=== PATIENT | female | born 1945 | race Caucasian/White ===

== ENCOUNTER → 2016-10-29 | Outpatient (CLI) | payer OTHER ==
[~2016-10-29] MED LIST: AMR2 PO; ASPI81TA28 PO; HYDC25 PO; LEVO112T18 PO; LISI5TAB3 PO; SIMV20TA2 PO
--- NOTE | 2016-10-29 12:58 | MAMMOGRAPHY REPORT ---
BILATERAL DIGITAL SCREENING MAMMOGRAM WITH CAD: 10/29/2016 CLINICAL HISTORY: Routine screening. Patient has no complaints. TECHNIQUE: Current study was also evaluated with a Computer Aided Detection (CAD) system. Bilatera l CC and MLO views were obtained. COMPARISON: Comparison is made to exams dated: 10/29/2015 mammogram, 10/26/2014 mammogram, 10/25/2013 mammogram, 09/02/2012 mammogram, 08/27/2011 mammogram, and 08/23/2010 mammogram - [facility]. BREAST COMPOSITION: There are scattered areas of fibroglandular density in both breasts. FINDINGS: No suspicious masses, calcifications, or areas of architectural distortion are noted in e ither breast. There has been no significant interval change compared to prior exams. Pacemaker proj ects over the left pectoralis muscle. Bilateral benign-appearing calcifications are not significant ly changed. IMPRESSION: ACR BI-RADS CATEGORY 2: BENIGN There is no mammographic evidence of malignancy. A 1 year screening mammogram is recommended. The p atient will receive written notification of the results. Approximately 10% of breast cancers are not detected with mammography. A negative mammographic repor t should not delay biopsy if a clinically suggestive mass is present. Chyna Jorge M.D. /:10/29/2016 12:41:11 [employer] Lieutenant: Ken NUNEZ)(M), [facility] letter sent: Normal 1/2 BI-RADS Code: ACR BI-RADS Category 2: Benign
== END | disposition home or self-care (01) ==
LOC: C.MAMM 11:42
PROVIDERS: ATTEND Obstetrics & Gynecology
DX: Z12.31 Encounter for screening mammogram for malignant neoplasm of breast (principal)

== ENCOUNTER 2017-10-01 14:31 | Emergency (ER) | payer OTHER ==
[~2017-10-01] VITALS: Ht 152.4 cm; Wt 70.5 kg
[2017-10-01 14:41] VITALS: TEMP 36.6; Ht 152.4 cm; Wt 70.5 kg
--- NOTE | 2017-10-01 16:50 | EMERGENCY ROOM VISIT NOTE ---
History Report prepared by Drake: Chano Morales Under the Supervision of: Dr. Luciano Mortensen M.D. First contact with patient: 16:31 Chief Complaint: CARDIAC ASSESSMENT Stated Complaint: DISCOMFORT&BURNING IN CHEST/PACEMAKER AREA Nursing Triage Summary: triage note: pt reports intermittent left chest burning sensation x 2 weeks. pt reports she has a pacemaker in left chest. pt reports pus like drainage from left nipple x 10 days per pt "it is a just a small amount." History of Present Illness The patient is a 71 year old white female with a past medical history of DM, HTN , and heart block who presents to the ED with a cc of intermittent left sided chest pain beginning 10 days ago. She rates her discomfort as a 3/10 in severity. She describes the pain as a burning sensation.The patient states she had a pacemaker placed 4 [address] Abad due to a history of a heart block. She reports that for the last 10 days she has been experiencing pain around the pacemaker site. The patient states that some days the pain will not be as severe, but other days the area will be burning. She reports she has also noticed yellow like discharge from her left nipple which started around the same time as the chest pain. The patient states she only notices the discharged when she takes off her bra and sees that her bra is slightly wet on the left side. She reports she has taken Ibuprofen for her symptoms without relief. Positive Radiation to the shoulder, alcohol use. Negative excess use of left arm, moving pacemaker, history of blood clots, changes in medications, fevers, chills, falling, injury, shortness of breath, cough, tobacco use, abdominal pain, urinary symptoms, abnormal bowel movements, lower extremity edema, breast pain, a history of breast cancer. Source of History: patient Onset: 10 days ago Position: chest (left) Symptom Intensity: 3/10 Quality: burning Timing: intermittent Modifying Factors (Relieving): ibuprofen Associated Symptoms: No fevers, No chills, No cough, No SOB, No urinary symptoms Note: Positive: radiation to the left shoulder Negative: falling, injury, abnormal bowel movements, lower extremity edema, breast pain. Review of Systems See HPI for pertinent positives and negatives. A total of ten systems were reviewed and were otherwise negative. Past Medical & Surgical Medical Problems: (1) Diab Keya Wo Compl, Type Ii Or Unspec Type, Not Uncntrld (2) Hearing Loss Nos (3) Hypertension Nos (4) Meniere's Disease Nos Family History Patient reports no known family medical history. Social History Smoking Status: Never Smoker Drug Use: none Marital Status: Housing Status: lives with family Occupation Status: employed Current/Historical Medications Scheduled Aspirin (Aspirin Ec), 81 MG PO DAILY Atorvastatin (Lipitor), 1 TAB PO QPM Bromfenac Sodium (Ophth) (Prolensa), 1 DROP OPB DAILY Glimepiride (Glimepiride), 1 TAB PO DAILY Hydrochlorothiazide (Hctz), 25 MG PO DAILY Levothyroxine Sodium (Synthroid), 100 MCG PO DAILY Lisinopril (Prinivil), 5 MG PO DAILY Allergies Coded Allergies: Monosodium Glutamate (Verified Allergy, Unknown, 07/13/09) Physical Exam Vital Signs Date Time Temp Pulse Resp B/P (MAP) Pulse Ox O2 Delivery O2 Flow Rate FiO2 10/01/17 19:11 71 16 126/60 98 10/01/17 17:41 70 10/01/17 17:36 97 Room Air 10/01/17 17:36 63 18 139/73 97 Room Air 10/01/17 14:41 36.6 96 18 133/89 97 Room Air Physical Exam GENERAL: Awake, alert, well-appearing, NAD HENT: Normocephalic, atraumatic. EYES: Normal conjunctiva. Sclera non-icteric. PERRL. No anisocoria. NECK: Supple. No nuchal rigidity. FROM. RESPIRATORY: CTAB, no rhonchi, wheezing, crackles CARDIAC: RRR, no MRG ABDOMEN: Soft, NTND, BS+ MSK: Device in left chest. Mild reproducible pain over site. Horizontal incisional scar. No redness, calor, or fluctuance. No pain over the breast. Scant serous discharge from left nipple. No LE edema NEURO: GCS 15, CN 2-12 intact, moves all 4s on command SKIN: No rash or jaundice noted. Medical Decision & Procedures ER Provider Diagnostic Interpretation: X-ray: Per my interpretation, radiologist review. CHEST ONE VIEW PORTABLE CLINICAL HISTORY: Chest pain. COMPARISON STUDY: Chest radiograph September 09, 2013. FINDINGS: A dual-lead left subclavian pacemaker is unchanged in position. There is mild cardiomegaly without evidence for pulmonary edema. There is no consolidation to suggest pneumonia. Lung volumes are at the lower limits of normal. The appearance of the chest is unchanged. IMPRESSION: No acute cardiopulmonary findings. Electronically signed by: Isacc Perez M.D. 10/01/2017 5:12 PM Dictated Date/Time: 10/01/2017 5:11 PM Laboratory Results 10/01/17 17:30 Red Blood Count 4.53, Mean Corpuscular Volume 86.1, Mean Corpuscular Hemoglobin 29.8, Mean Corpuscular Hemoglobin Concent 34.6, Mean Platelet Volume 9.6, Neutrophils (%) (Auto) 73.6, Lymphocytes (%) (Auto) 16.2, Monocytes (%) (Auto) 7.7, Eosinophils (%) (Auto) 1.9, Basophils (%) (Auto) 0.3, Neutrophils # (Auto) 5.14, Lymphocytes # (Auto) 1.13, Monocytes # (Auto) 0.54, Eosinophils # (Auto) 0.13, Basophils # (Auto) 0.02 10/01/17 17:30 Test 10/01/17 17:30 White Blood Count 6.98 K/uL (4.8-10.8) Red Blood Count 4.53 M/uL (4.2-5.4) Hemoglobin 13.5 g/dL (12.0-16.0) Hematocrit 39.0 % (37-47) Mean Corpuscular Volume 86.1 fL (80-100) Mean Corpuscular Hemoglobin 29.8 pg (25-34) Mean Corpuscular Hemoglobin Concent 34.6 g/dl (32-36) Platelet Count 219 K/uL (130-400) Mean Platelet Volume 9.6 fL (7.4-10.4) Neutrophils (%) (Auto) 73.6 % Lymphocytes (%) (Auto) 16.2 % Monocytes (%) (Auto) 7.7 % Eosinophils (%) (Auto) 1.9 % Basophils (%) (Auto) 0.3 % Neutrophils # (Auto) 5.14 K/uL (1.4-6.5) Lymphocytes # (Auto) 1.13 K/uL (1.2-3.4) Monocytes # (Auto) 0.54 K/uL (0.11-0.59) Eosinophils # (Auto) 0.13 K/uL (0-0.5) Basophils # (Auto) 0.02 K/uL (0-0.2) RDW Standard Deviation 41.0 fL (36.4-46.3) RDW Coefficient of Variation 12.9 % (11.5-14.5) Immature Granulocyte % (Auto) 0.3 % Immature Granulocyte # (Auto) 0.02 K/uL (0.00-0.02) Prothrombin Time 10.7 SECONDS (9.0-12.0) Prothromb Time International Ratio 1.0 (0.9-1.1) Activated Partial Thromboplast Time 26.6 SECONDS (21.0-31.0) Partial Thromboplastin Ratio 1.0 Anion Gap 7.0 mmol/L (3-11) Est Creatinine Clear Calc Drug Dose 67.4 ml/min Estimated GFR () 102.9 Estimated GFR (Non- 88.8 BUN/Creatinine Ratio 15.5 (10-20) Calcium Level 8.7 mg/dl (8.5-10.1) Total Bilirubin 0.7 mg/dl (0.2-1) Direct Bilirubin 0.2 mg/dl (0-0.2) Aspartate Amino Transf (AST/SGOT) 20 U/L (15-37) Alanine Aminotransferase (ALT/SGPT) 38 U/L (12-78) Alkaline Phosphatase 71 U/L (45-117) Troponin I < 0.015 ng/ml (0-0.045) Pro-B-Type Natriuretic Peptide 136 pg/ml (0-900) Total Protein 6.9 gm/dl (6.4-8.2) Albumin 3.9 gm/dl (3.4-5.0) Lipase 389 U/L (73-393) Laboratory results reviewed by me ECG Per My Interpretation Indication: chest pain Rate (beats per minute): 79 Rhythm: other (AV dual paced) Findings: LBBB, Q waves, other (prolonged NM, wide QRS) ED Course 163: The patient was evaluated in room B09. A complete history and physical exam was performed. 1824: I discussed the patient's case with Dr. Guerrero, [facility]. He reports the patient is able to go home and follow up with his clinic. 1857: I reevaluated the patient. Discussed results and discharge instructions: She verbalized understanding and agreement. The patient is ready for discharge. Medical Decision Nursing notes reviewed. Ancillary studies and prior records reviewed. The patient is a 71 year old white female with a past medical history of DM, HTN , and heart block who presents to the ED with a cc of intermittent left sided chest pain beginning 10 days ago. The patient's presentation and history were concerning for etiologies such as cardiac ischemia, aortic dissection, pulmonary embolism, pneumonia, pneumothorax , musculoskeletal, infections, pericarditis, myocarditis, esophageal rupture, gastrointestinal, pacemaker fracture as well as others were entertained. Patient was seen and evaluated the bedside. Patient was complaining some left- sided chest discomfort that been ongoing 10 days. Patient states it feels like it is pain over her pacemaker. Patient denies any increase in left upper extremity use, trauma, or having struck the device. Patient denies any shortness of breath. Patient denies any exertional chest pain and no history of DVT or PE. Patient is also noted an associated breast discharge. On exam the patient does have some mild reproducible tenderness where the pacemaker is located but without any erythema, calor, fluctuance, or discharge. Patient does have some scant serous discharge from the left breast that was able to be expressed but this is a very small amount much less than 1 cc. Patient does not have any breast tenderness, fluctuance, or erythema. Patient did blood work completed, EKG, troponin, and chest x-ray. The patient declined any pain medication at this time. The patient did have her pacemaker interrogated. Patient's pacemaker was interrogated. The patient does have approximate 4 years of battery life. The patient's chest x-ray is unremarkable. Blood work is also fairly unremarkable. Troponin is negative. I did discuss the case with the on-call utility worker we did discuss things like possibility of infection or migration. Given the normal white counts and lack of other signs and symptoms less likely infection. The leads appear to be in the appropriate place per the chest x-ray. Recommended follow-up in clinic. Patient was told to take Tylenol and to apply things like warm compresses and/ or ice to the area to help with any discomfort. Given the reproducible nature of her chest pain over the pacemaker I do not believe that this is ACS. Less likely PE given patient's history and physical exam per patient was told to follow-up with her PCP for her breast discharge. Patient was given strict follow-up, discharge, and return precautions. All questions were answered. Patient was deemed suitable for outpatient follow-up at this time. Patient agreed with the plan of care and was safely discharged home. Medication Reconcilliation Current Medication List: was personally reviewed by me Blood Pressure Screening Patient's blood pressure: Elevated blood pressure Blood pressure disposition: Referred to PCP Consults Time Called: 1824 Consulting Physician: [facility] Returned Call: 1824 I discussed the patient's case with [facility]. He reports the patient is able to go home and follow up with his clinic. Impression Primary Impression: Chest pain Additional Impression: Pain in pacemaker pocket Scribe Attestation The scribe's documentation has been prepared under my direction and personally reviewed by me in its entirety. I confirm that the note above accurately reflects all work, treatment, procedures, and medical decision making performed by me. Departure Information Dispostion Home / Self-Care Referrals Jorge Maldonado, Yordan (PCP) Erasmo Abad M.D. Patient Instructions Chest Pain - [facility], [facility] Additional Instructions Please return to the emergency department if you have worsening or recurrent symptoms not amenable to at-home treatment. Please call for a follow-up appointment with her primary care physician. Please take your medications as prescribed. If you have other concerns and/or complaints please feel free to also call your primary care physician's office or return the ED for further evaluation, management, and treatment. You may take tylenol 650 mg every 6 hours as needed for pain/fever unless told by your physician to not take it or have liver problems. You may apply moist heat or ice to the area. You may also consider a topical medication. Please follow-up with your PCP for your breast discharge. Take your medications as prescribed. You may follow-up with the utility worker as needed if you have persistent discomfort. Please call for a follow-up appointment. You have been examined and treated today on an emergency basis only. This is not a substitute for, or an effort to provide, complete comprehensive medical care. It is impossible to recognize and treat all injuries or illnesses in a single emergency department visit. It is therefore important that you follow up closely with [facility], your PCP, and/or your specialist(s). Call as soon as possible for an appointment. Thank you for your time and consideration. I look forward to speaking with you again soon. Please don't hesitate to call us if you have any questions. Problem Qualifiers Primary Impression: Chest pain Chest pain type: unspecified Qualified Codes: R07.9 - Chest pain, unspecified
[2017-10-01] MEDS ORDERED: LISI5TAB PO (17:04)
[2017-10-01] MEDS ORDERED: BROM0.07 OPB (17:04)
[2017-10-01] MEDS ORDERED: HYDR25TA4 PO (17:04)
[2017-10-01] MEDS ORDERED: GLIM2TAB2 PO (17:04)
[2017-10-01] MEDS ORDERED: ATOR-24 PO (17:04)
[2017-10-01] MEDS ORDERED: LEVO100T PO (17:04)
--- NOTE | 2017-10-01 17:14 | DIAGNOSTIC IMAGING REPORT ---
CHEST ONE VIEW PORTABLE CLINICAL HISTORY: Chest pain. COMPARISON STUDY: Chest radiograph September 09, 2013. FINDINGS: A dual-lead left subclavian pacemaker is unchanged in position. There is mild cardiomegaly without evidence for pulmonary edema. There is no consolidation to suggest pneumonia. Lung volumes are at the lower limits of normal. The appearance of the chest is unchanged. IMPRESSION: No acute cardiopulmonary findings. Electronically signed by: Isacc Perez M.D. 10/01/2017 5:12 PM Dictated Date/Time: 10/01/2017 5:11 PM
[2017-10-01 17:36] VITALS: O2SAT 97
[2017-10-01 17:51] LABS: BASO % 0.3 %; BASO ABS # 0.02 K/uL (0-0.2); EOS % 1.9 %; EOS ABS # 0.13 K/uL (0-0.5); HEMOGLOBIN 13.5 g/dL (12.0-16.0); IG# 0.02 K/uL (0.00-0.02); LYMPH % 16.2 %; LYMPH ABS # 1.13 K/uL (1.2-3.4); MEAN CELL VOLUME 86.1 fL (80-100); MEAN CORPUSCULAR HEMOGLOBIN 29.8 pg (25-34); MEAN CORPUSCULAR HGB CONC 34.6 g/dl (32-36); MEAN PLATELET VOLUME 9.6 fL (7.4-10.4); MONO % 7.7 %; MONO ABS # 0.54 K/uL (0.11-0.59); NEUT % 73.6 %; NEUT ABS # 5.14 K/uL (1.4-6.5); PLATELET COUNT 219 K/uL (130-400); RED CELL DISTRIBUTION WIDTH CV 12.9 % (11.5-14.5); WHITE BLOOD COUNT 6.98 K/uL (4.8-10.8)
[2017-10-01 18:01] LABS: PTT PATIENT 26.6 SECONDS (21.0-31.0)
[2017-10-01 18:14] LABS: ALBUMIN 3.9 gm/dl (3.4-5.0); ALT/SGPT 38 U/L (12-78); AST/SGOT 20 U/L (15-37); BLOOD UREA NITROGEN 11 mg/dl (7-18); CALCIUM 8.7 mg/dl (8.5-10.1); CARBON DIOXIDE 25 mmol/L (21-32); CREATININE 0.69 mg/dl (0.60-1.20); GLUCOSE 72 mg/dl (70-99); LIPASE 389 U/L (73-393); POTASSIUM 3.6 mmol/L (3.5-5.1); SODIUM 142 mmol/L (136-145)
[2017-10-01 18:19] LABS: ALKALINE PHOSPHATASE 71 U/L (45-117); TOTAL PROTEIN 6.9 gm/dl (6.4-8.2)
[2017-10-01 19:11] VITALS: BP 126/60; PULSE 71; O2SAT 98
== END 2017-10-01 19:11 | disposition home or self-care (01) ==
LOC: C.EDB 14:32
DX: R07.9 Chest pain, unspecified (principal); T82.847A Pain due to cardiac prosthetic devices, implants and grafts, initial encounter; Y83.1 Surgical operation with implant of artificial internal device as the cause of abnormal reaction of the patient, or of later complication, without mention of misadventure at the time of the procedure; E11.9 Type 2 diabetes mellitus without complications; I10 Essential (primary) hypertension; Z95.0 Presence of cardiac pacemaker; H81.09 Meniere's disease, unspecified ear; Z88.8 Allergy status to other drugs, medicaments and biological substances; Z79.82 Long term (current) use of aspirin; Z79.84 Long term (current) use of oral hypoglycemic drugs; Z79.899 Other long term (current) drug therapy